=== PATIENT | male | born 1935 | race Caucasian/White ===

== ENCOUNTER 2023-12-02 23:15 | Inpatient (IN) | payer OTHER, MEDICAID ==
[~2023-12-02] VITALS: Ht 177.8 cm; Wt 61.2 kg
[2023-12-02 23:22] VITALS: BP_SYST 110; PULSE 162; RESP 17; TEMP 98; O2SAT 97
[2023-12-02] MEDS ORDERED: PIPERACILLIN/TAZOBACTAM 3.375 GM/VIAL (ZOSYN) IV ONE (23:47)
[2023-12-02] MEDS: dilTIAZem HCL IVP 5 MG/ML VIAL IVP ONE (23:51)
[2023-12-02] MEDS: PIPERACILLIN/TAZO 3.375 GM in D5W 50 ML IV ONE (23:52)
[2023-12-02] MEDS ORDERED: BISA10SU61 RC (23:53)
[2023-12-02] MEDS ORDERED: MULT-1117 GT (23:53)
[2023-12-02] MEDS ORDERED: IPRA4AER INH (23:53)
[2023-12-02] MEDS ORDERED: DICY10SO GT (23:53)
[2023-12-02] MEDS ORDERED: ZOLP5TAB2 PO (23:53)
[2023-12-02] MEDS ORDERED: FAMO40TA7 GT (23:53)
[2023-12-02] MEDS ORDERED: SIME80TA15 GT (23:53)
[2023-12-02] MEDS ORDERED: AMIT10TA6 GT (23:53)
[2023-12-02] MEDS ORDERED: VITD2000 GT (23:53)
[2023-12-02] MEDS ORDERED: ACET325T GT ×2 (23:53)
[2023-12-02] MEDS ORDERED: MOM GT (23:53)
[2023-12-02] MEDS ORDERED: DIF100 PEG (23:53)
[2023-12-02] MEDS ORDERED: ACET-73 GT (23:53)
[2023-12-02] MEDS ORDERED: COLL100 GT (23:53)
[2023-12-02] MEDS ORDERED: OLAN2.5T3 GT (23:53)
[2023-12-02] MEDS ORDERED: SENN8.6T19 GT (23:53)
[2023-12-03] VITALS (24 sets, daily range): BP systolic 97–135; PULSE 87–167; RESP 14–20; TEMP 98.2–100; O2SAT 91–100
[2023-12-03] LABS: BASOPHILS % (AUTO) 0.3 % (0.0-2.0); EOSINOPHILS % (AUTO) 0.2 % (0.0-4.0); HEMATOCRIT 22.4 % (36-54); LYMPHOCYTES # (AUTO) 1.1 K/uL (1.0-5.5); LYMPHOCYTES % (AUTO) 13.1 % (20.5-51.5); MEAN CORPUSCULAR HEMOGLOBIN 35 pg (27-31); MEAN CORPUSCULAR HGB CONC 36 % (32-36); MEAN CORPUSCULAR VOLUME 97 fL (79.0-98.0); MONOCYTES # (AUTO) 1.4 K/uL (0.0-1.0); MONOCYTES % (AUTO) 16.5 % (1.7-9.3); NEUTROPHILS # (AUTO) 5.9 K/uL (1.8-7.7); NEUTROPHILS % (AUTO) 69.9 % (40.0-70.0); PLATELET COUNT (AUTO) 219 K/uL (130-430); RED BLOOD CELL COUNT(AUTO) 2.31 MIL/uL (4.2-6.2); RED CELL DISTRIBUTION WIDTH 16.8 % (9.0-15.0); WHITE BLOOD COUNT (AUTO) 8.5 K/uL (4.8-10.8)
[2023-12-03] MEDS: NS 1000 ML IV.SOLN IV ONE (00:02)
[2023-12-03] MEDS: dilTIAZem HCL IVP 5 MG/ML VIAL IVP ONE (00:12)
[2023-12-03 00:52] LABS: ALANINE AMINOTRANSFERASE 38 U/L (12-78); ALBUMIN 2.4 g/dL (3.4-4.8); ANION GAP 8 (5-15); ASPARTATE AMINOTRANSFERASE 60 U/L (10-37); CALCIUM 9.2 mg/dL (8.4-11.0); CARBON DIOXIDE 27 mmol/L (23-29); CHLORIDE 96 mmol/L (98-107); CREATININE 1.71 mg/dL (0.55-1.30); GLUCOSE 131 mg/dL (74-106); POTASSIUM 3.6 mmol/L (3.5-5.1); PROTHROMBIN TIME 10.1 SECS (9.5-12.5); SODIUM SERUM 131 mmol/L (136-145); TOTAL BILIRUBIN 0.5 mg/dL (0.0-1.0); TOTAL PROTEIN, SERUM 6.7 g/dL (6.4-8.3); UREA NITROGEN, BLOOD 65 mg/dL (8-21)
[2023-12-03 01:00] LABS: BILIRUBIN,DIRECT 0.2 mg/dL (0.0-0.3)
[2023-12-03 06:45] LABS: BASOPHILS % (AUTO) 0.3 % (0.0-2.0); EOSINOPHILS % (AUTO) 0.1 % (0.0-4.0); HEMATOCRIT 25.9 % (36-54); HEMOGLOBIN 8.9 g/dL (14.0-18.0); LYMPHOCYTES # (AUTO) 0.9 K/uL (1.0-5.5); LYMPHOCYTES % (AUTO) 10.6 % (20.5-51.5); MEAN CORPUSCULAR HEMOGLOBIN 34 pg (27-31); MEAN CORPUSCULAR HGB CONC 34 % (32-36); MEAN CORPUSCULAR VOLUME 99 fL (79.0-98.0); MONOCYTES # (AUTO) 1.3 K/uL (0.0-1.0); NEUTROPHILS # (AUTO) 6.4 K/uL (1.8-7.7); PLATELET COUNT (AUTO) 231 K/uL (130-430); RED BLOOD CELL COUNT(AUTO) 2.62 MIL/uL (4.2-6.2); RED CELL DISTRIBUTION WIDTH 16.8 % (9.0-15.0); WHITE BLOOD COUNT (AUTO) 8.6 K/uL (4.8-10.8)
[2023-12-03 07:18] LABS: ALANINE AMINOTRANSFERASE 38 U/L (12-78); ALBUMIN 2.5 g/dL (3.4-4.8); ANION GAP 10 (5-15); ASPARTATE AMINOTRANSFERASE 54 U/L (10-37); CALCIUM 9.5 mg/dL (8.4-11.0); CARBON DIOXIDE 26 mmol/L (23-29); CHLORIDE 97 mmol/L (98-107); CREATININE 1.72 mg/dL (0.55-1.30); GLUCOSE 133 mg/dL (74-106); POTASSIUM 3.9 mmol/L (3.5-5.1); SODIUM SERUM 133 mmol/L (136-145); TOTAL BILIRUBIN 0.7 mg/dL (0.0-1.0); TOTAL PROTEIN, SERUM 7.1 g/dL (6.4-8.3); UREA NITROGEN, BLOOD 60 mg/dL (8-21)
[2023-12-03 08:25] LABS: BILIRUBIN,URINE NEGATIVE (NEGATIVE); BLOOD, URINE NEGATIVE (NEGATIVE); CLARITY/URINE CLEAR (CLEAR); COLOR,URINE YELLOW (YELLOW); GLUCOSE,URINE NEGATIVE (NEGATIVE); KETONES,URINE NEGATIVE (NEGATIVE); LEUKOCYTE ESTERASE ,URINE NEGATIVE (NEGATIVE); NITRITE, URINE NEGATIVE (NEGATIVE); PH,URINE 5.5 (5.0-8.0); PROTEIN URINE NEGATIVE (NEGATIVE); UROBILINOGEN,URINE 0.2 (0.2-1.0)
[2023-12-03] MEDS: PIPERACILLIN/TAZO 3.375 GM in NS 50 ML IV SCH (08:31)
[2023-12-03] MEDS: DILTIAZEM HCL 30 MG TABLET PO ONE (08:48)
[2023-12-03] MEDS ORDERED: SIMETHICONE 80 MG TAB.CHEW GT SCH (09:45)
[2023-12-03] MEDS ORDERED: ONDANSETRON HCL 4 MG/2 ML VIAL IVP PRN (09:45)
[2023-12-03] MEDS ORDERED: HYDROcodone/ACETAMIN 5-325 MG TAB (NORCO/ VICODIN) PO PRN (09:45)
[2023-12-03] MEDS ORDERED: NALOXONE HCL 0.4 MG/ML AMP (NARCAN) IVP PRN (09:45)
[2023-12-03] MEDS ORDERED: BISACODYL 10 MG/SUPPOSITORY RC SCH (09:45)
[2023-12-03] MEDS: ALBUTEROL SULFATE 0.083% 2.5 MG/3 ML VIAL.NEB INH SCH (10:49)
[2023-12-03] MEDS: NACL 0.9% 1,000 ML IV ONE (11:25)
[2023-12-03] MEDS ORDERED: METOPROLOL SUCCINATE 25 MG TAB.SR.24H (TOPROL XL) PO SCH ×2 (11:45→21:00)
[2023-12-03] MEDS: DILTIAZEM HCL 30 MG TABLET PO SCH (13:48)
[2023-12-03] MEDS: OLANZapine 2.5 MG TABLET PO ONE (18:15)
[2023-12-03] MEDS: ACETAMINOPHEN 325 MG TABLET PO PRN (18:42)
[2023-12-03] MEDS ORDERED: OLANZapine 2.5 MG TABLET GT SCH (21:00)
[2023-12-03] MEDS: AMITRIPTYLINE HCL 10 MG TABLET (ELAVIL) GT SCH (21:03)
[2023-12-03] MEDS: OLANZapine 2.5 MG TABLET PO SCH (21:04)
[2023-12-04] VITALS (28 sets, daily range): BP systolic 97–133; PULSE 96–174; RESP 15–23; TEMP 98.6–99.7; O2SAT 94–100
[2023-12-04] MEDS: dilTIAZem HCL IVP 5 MG/ML VIAL IVP PRN (03:34)
[2023-12-04] MEDS: MORPHINE 2 MG/ML INJ. SYRINGE IVP PRN (04:34)
[2023-12-04 05:30] LABS: TOTAL IRON BIND. CAPACITY 233 ug/dL (250-450)
[2023-12-04 06:01] LABS: BASOPHILS % (AUTO) 0.3 % (0.0-2.0); EOSINOPHILS % (AUTO) 0.1 % (0.0-4.0); HEMOGLOBIN 7.5 g/dL (14.0-18.0); LYMPHOCYTES # (AUTO) 0.7 K/uL (1.0-5.5); LYMPHOCYTES % (AUTO) 10.5 % (20.5-51.5); MEAN CORPUSCULAR HEMOGLOBIN 34 pg (27-31); MEAN CORPUSCULAR HGB CONC 35 % (32-36); MEAN CORPUSCULAR VOLUME 99 fL (79.0-98.0); MONOCYTES # (AUTO) 1.1 K/uL (0.0-1.0); MONOCYTES % (AUTO) 17.2 % (1.7-9.3); NEUTROPHILS # (AUTO) 4.7 K/uL (1.8-7.7); NEUTROPHILS % (AUTO) 71.9 % (40.0-70.0); PLATELET COUNT (AUTO) 241 K/uL (130-430); RED CELL DISTRIBUTION WIDTH 17.3 % (9.0-15.0); WHITE BLOOD COUNT (AUTO) 6.6 K/uL (4.8-10.8)
[2023-12-04 06:07] LABS: ALANINE AMINOTRANSFERASE 33 U/L (12-78); ANION GAP 7 (5-15); ASPARTATE AMINOTRANSFERASE 40 U/L (10-37); CALCIUM 8.9 mg/dL (8.4-11.0); CARBON DIOXIDE 27 mmol/L (23-29); CHLORIDE 103 mmol/L (98-107); CREATININE 1.67 mg/dL (0.55-1.30); GLUCOSE 147 mg/dL (74-106); SODIUM SERUM 137 mmol/L (136-145); TOTAL BILIRUBIN 0.4 mg/dL (0.0-1.0); TOTAL PROTEIN, SERUM 6.2 g/dL (6.4-8.3); UREA NITROGEN, BLOOD 48 mg/dL (8-21)
[2023-12-04 06:39] LABS: HEMATOCRIT 21.8 % (36-54)
[2023-12-04 06:43] LABS: RETICULOCYTE COUNT 6.7 % (0.5-1.5)
[2023-12-04] MEDS: CARVEDILOL 3.125 MG TABLET (COREG) PO ONE (10:43)
[2023-12-04] MEDS: CEFEPIME 1 GM in D5W 50 ML IV SCH (10:44)
[2023-12-04] MEDS: SOD FERRIC GLUC COMPLEX/SUC 125 MG in NS 100 ML IV SCH (14:28)
[2023-12-04] MEDS: EPOETIN ALFA-EPBX 3,000 UNITS/ML VIAL SUBCUT SCH (16:30)
[2023-12-04] MEDS: CARVEDILOL 3.125 MG TABLET (COREG) PO SCH (20:41)
[2023-12-04] MEDS: AMITRIPTYLINE HCL 10 MG TABLET (ELAVIL) PO SCH (21:11)
[2023-12-04] MEDS: HEPARIN SODIUM,PORCINE 5,000 UNITS/ML VIAL SUBCUT SCH (21:12)
[2023-12-05] VITALS (29 sets, daily range): BP systolic 94–131; PULSE 91–115; RESP 12–23; TEMP 97.8–99.3; O2SAT 94–100
[2023-12-05 05:04] LABS: ALANINE AMINOTRANSFERASE 33 U/L (12-78); ALBUMIN 2.1 g/dL (3.4-4.8); ANION GAP 6 (5-15); ASPARTATE AMINOTRANSFERASE 37 U/L (10-37); CALCIUM 8.8 mg/dL (8.4-11.0); CARBON DIOXIDE 28 mmol/L (23-29); CHLORIDE 103 mmol/L (98-107); CREATININE 1.46 mg/dL (0.55-1.30); GLUCOSE 117 mg/dL (74-106); POTASSIUM 4.6 mmol/L (3.5-5.1); SODIUM SERUM 137 mmol/L (136-145); TOTAL BILIRUBIN 0.5 mg/dL (0.0-1.0); TOTAL PROTEIN, SERUM 6.3 g/dL (6.4-8.3); UREA NITROGEN, BLOOD 41 mg/dL (8-21)
[2023-12-05 05:10] LABS: BASOPHILS % (AUTO) 0.4 % (0.0-2.0); EOSINOPHILS % (AUTO) 0.3 % (0.0-4.0); HEMOGLOBIN 7.3 g/dL (14.0-18.0); LYMPHOCYTES # (AUTO) 0.7 K/uL (1.0-5.5); LYMPHOCYTES % (AUTO) 10.2 % (20.5-51.5); MEAN CORPUSCULAR HEMOGLOBIN 34 pg (27-31); MEAN CORPUSCULAR HGB CONC 34 % (32-36); MEAN CORPUSCULAR VOLUME 100 fL (79.0-98.0); MONOCYTES # (AUTO) 1.2 K/uL (0.0-1.0); MONOCYTES % (AUTO) 17.8 % (1.7-9.3); NEUTROPHILS # (AUTO) 4.9 K/uL (1.8-7.7); NEUTROPHILS % (AUTO) 71.3 % (40.0-70.0); PLATELET COUNT (AUTO) 279 K/uL (130-430); RED BLOOD CELL COUNT(AUTO) 2.16 MIL/uL (4.2-6.2); RED CELL DISTRIBUTION WIDTH 17.6 % (9.0-15.0); WHITE BLOOD COUNT (AUTO) 6.9 K/uL (4.8-10.8)
[2023-12-05 06:00] LABS: HEMATOCRIT 21.7 % (36-54)
[2023-12-05] MEDS: FOLIC ACID 1 MG TABLET PO SCH (10:14)
[2023-12-05] MEDS: SENNOSIDES/DOCUSATE SODIUM 1 TAB TABLET(SENOKOT-S) PO ONE (15:06)
[2023-12-05] MEDS: AMIODARONE HCL 200 MG TABLET PO ONE (16:52)
[2023-12-05] MEDS: AMIODARONE HCL 200 MG TABLET PO SCH (20:20)
[2023-12-05] MEDS: SENNOSIDES/DOCUSATE SODIUM 1 TAB TABLET(SENOKOT-S) PO SCH (20:39)
[2023-12-06] VITALS (28 sets, daily range): BP systolic 103–139; PULSE 92–165; RESP 13–24; TEMP 97.8–99.8; O2SAT 0–100
[2023-12-06 07:28] LABS: BASOPHILS % (AUTO) 0.4 % (0.0-2.0); EOSINOPHILS % (AUTO) 0.4 % (0.0-4.0); HEMOGLOBIN 7.2 g/dL (14.0-18.0); LYMPHOCYTES # (AUTO) 0.7 K/uL (1.0-5.5); LYMPHOCYTES % (AUTO) 10.6 % (20.5-51.5); MEAN CORPUSCULAR HEMOGLOBIN 33 pg (27-31); MEAN CORPUSCULAR HGB CONC 33 % (32-36); MEAN CORPUSCULAR VOLUME 101 fL (79.0-98.0); NEUTROPHILS % (AUTO) 73.6 % (40.0-70.0); PLATELET COUNT (AUTO) 316 K/uL (130-430); RED BLOOD CELL COUNT(AUTO) 2.17 MIL/uL (4.2-6.2); RED CELL DISTRIBUTION WIDTH 17.6 % (9.0-15.0); WHITE BLOOD COUNT (AUTO) 6.8 K/uL (4.8-10.8)
[2023-12-06 07:34] LABS: ALANINE AMINOTRANSFERASE 33 U/L (12-78); ALBUMIN 2.2 g/dL (3.4-4.8); ANION GAP 10 (5-15); ASPARTATE AMINOTRANSFERASE 40 U/L (10-37); CALCIUM 9.2 mg/dL (8.4-11.0); CARBON DIOXIDE 26 mmol/L (23-29); CHLORIDE 102 mmol/L (98-107); CREATININE 1.42 mg/dL (0.55-1.30); GLUCOSE 132 mg/dL (74-106); POTASSIUM 4.1 mmol/L (3.5-5.1); SODIUM SERUM 138 mmol/L (136-145); TOTAL BILIRUBIN 0.4 mg/dL (0.0-1.0); TOTAL PROTEIN, SERUM 6.5 g/dL (6.4-8.3); UREA NITROGEN, BLOOD 39 mg/dL (8-21)
[2023-12-06 08:44] LABS: HEMATOCRIT 21.9 % (36-54)
[2023-12-06] MEDS ORDERED: AMIODARONE HCL 450 MG in D5W 241 ML IV SCH (11:15)
[2023-12-06] MEDS ORDERED: AMIODARONE HCL 150 MG in D5W 100 ML IV ONE (11:30)
[2023-12-06] MEDS: APIXABAN 2.5 MG TABLET PO ONE (12:36)
[2023-12-06] MEDS: AMIODARONE HCL 150 MG in D5W 100 ML IV ONE (12:57)
[2023-12-06] MEDS: LevALBUTEROL HCL 1.25 MG/0.5 ML *CONC.* VIAL.NEB (XOPENEX CONC.) INH SCH (13:00)
[2023-12-06] MEDS: AMIODARONE HCL 150 MG/3ML VIAL ONE (13:17)
[2023-12-06] MEDS: AMIODARONE HCL 450 MG/9 ML VIAL IV ONE (20:46)
[2023-12-06] MEDS: AMIODARONE HCL 450 MG in D5W 241 ML IV SCH (21:03)
[2023-12-06] MEDS: APIXABAN 2.5 MG TABLET PO SCH (22:16)
[2023-12-07] VITALS (29 sets, daily range): BP systolic 100–141; PULSE 91–108; RESP 12–23; TEMP 97.3–98.8; O2SAT 95–100
[2023-12-07 06:13] LABS: BASOPHILS % (AUTO) 0.5 % (0.0-2.0); EOSINOPHILS % (AUTO) 0.3 % (0.0-4.0); LYMPHOCYTES # (AUTO) 0.8 K/uL (1.0-5.5); LYMPHOCYTES % (AUTO) 10.2 % (20.5-51.5); MEAN CORPUSCULAR HEMOGLOBIN 35 pg (27-31); MEAN CORPUSCULAR HGB CONC 34 % (32-36); MEAN CORPUSCULAR VOLUME 101 fL (79.0-98.0); MONOCYTES # (AUTO) 1.1 K/uL (0.0-1.0); MONOCYTES % (AUTO) 14.8 % (1.7-9.3); NEUTROPHILS # (AUTO) 5.6 K/uL (1.8-7.7); NEUTROPHILS % (AUTO) 74.2 % (40.0-70.0); PLATELET COUNT (AUTO) 324 K/uL (130-430); RED BLOOD CELL COUNT(AUTO) 2.04 MIL/uL (4.2-6.2); RED CELL DISTRIBUTION WIDTH 17.8 % (9.0-15.0); WHITE BLOOD COUNT (AUTO) 7.5 K/uL (4.8-10.8)
[2023-12-07 06:38] LABS: ALANINE AMINOTRANSFERASE 35 U/L (12-78); ALBUMIN 2.2 g/dL (3.4-4.8); ANION GAP 8 (5-15); ASPARTATE AMINOTRANSFERASE 46 U/L (10-37); CALCIUM 8.9 mg/dL (8.4-11.0); CARBON DIOXIDE 27 mmol/L (23-29); CHLORIDE 101 mmol/L (98-107); CREATININE 1.52 mg/dL (0.55-1.30); GLUCOSE 109 mg/dL (74-106); POTASSIUM 4.4 mmol/L (3.5-5.1); SODIUM SERUM 136 mmol/L (136-145); TOTAL BILIRUBIN 0.4 mg/dL (0.0-1.0); TOTAL PROTEIN, SERUM 6.3 g/dL (6.4-8.3); UREA NITROGEN, BLOOD 38 mg/dL (8-21)
[2023-12-07 08:20] LABS: HEMATOCRIT 20.6 % (36-54)
[2023-12-07] MEDS: AMIODARONE HCL 200 MG TABLET PO ONE (14:36)
[2023-12-07] MEDS: AMIODARONE HCL 200 MG TABLET PO SCH (21:45)
[2023-12-08] VITALS (25 sets, daily range): BP systolic 104–152; PULSE 88–110; RESP 14–25; TEMP 97.3–98.2; O2SAT 94–100
[2023-12-08 06:18] LABS: BASOPHILS % (AUTO) 0.3 % (0.0-2.0); EOSINOPHILS % (AUTO) 0.2 % (0.0-4.0); LYMPHOCYTES # (AUTO) 0.7 K/uL (1.0-5.5); LYMPHOCYTES % (AUTO) 8.5 % (20.5-51.5); MEAN CORPUSCULAR HEMOGLOBIN 35 pg (27-31); MEAN CORPUSCULAR HGB CONC 34 % (32-36); MEAN CORPUSCULAR VOLUME 101 fL (79.0-98.0); MONOCYTES # (AUTO) 1.3 K/uL (0.0-1.0); MONOCYTES % (AUTO) 15.2 % (1.7-9.3); NEUTROPHILS # (AUTO) 6.6 K/uL (1.8-7.7); NEUTROPHILS % (AUTO) 75.8 % (40.0-70.0); PLATELET COUNT (AUTO) 325 K/uL (130-430); RED CELL DISTRIBUTION WIDTH 18.3 % (9.0-15.0); WHITE BLOOD COUNT (AUTO) 8.7 K/uL (4.8-10.8)
[2023-12-08 07:13] LABS: ALANINE AMINOTRANSFERASE 38 U/L (12-78); ALBUMIN 2.1 g/dL (3.4-4.8); ANION GAP 8 (5-15); ASPARTATE AMINOTRANSFERASE 51 U/L (10-37); CALCIUM 9.1 mg/dL (8.4-11.0); CARBON DIOXIDE 26 mmol/L (23-29); CHLORIDE 102 mmol/L (98-107); CREATININE 1.48 mg/dL (0.55-1.30); GLUCOSE 99 mg/dL (74-106); POTASSIUM 4.8 mmol/L (3.5-5.1); SODIUM SERUM 136 mmol/L (136-145); TOTAL BILIRUBIN 0.4 mg/dL (0.0-1.0); TOTAL PROTEIN, SERUM 6.2 g/dL (6.4-8.3); UREA NITROGEN, BLOOD 37 mg/dL (8-21)
[2023-12-08 08:08] LABS: RED BLOOD CELL COUNT(AUTO) 1.98 MIL/uL (4.2-6.2)
[2023-12-08 08:13] LABS: HEMOGLOBIN 6.9 g/dL (14.0-18.0)
[2023-12-09] VITALS (19 sets, daily range): BP systolic 102–142; PULSE 99–113; RESP 14–24; TEMP 97.6–98.3; O2SAT 91–100
[2023-12-09 05:13] LABS: BASOPHILS % (AUTO) 0.3 % (0.0-2.0); EOSINOPHILS % (AUTO) 0.2 % (0.0-4.0); HEMATOCRIT 23.6 % (36-54); HEMOGLOBIN 8.1 g/dL (14.0-18.0); LYMPHOCYTES # (AUTO) 0.7 K/uL (1.0-5.5); LYMPHOCYTES % (AUTO) 7.6 % (20.5-51.5); MEAN CORPUSCULAR HEMOGLOBIN 34 pg (27-31); MEAN CORPUSCULAR HGB CONC 35 % (32-36); MEAN CORPUSCULAR VOLUME 99 fL (79.0-98.0); MONOCYTES # (AUTO) 1.5 K/uL (0.0-1.0); MONOCYTES % (AUTO) 16.5 % (1.7-9.3); NEUTROPHILS # (AUTO) 7.1 K/uL (1.8-7.7); NEUTROPHILS % (AUTO) 75.4 % (40.0-70.0); PLATELET COUNT (AUTO) 333 K/uL (130-430); RED CELL DISTRIBUTION WIDTH 18.2 % (9.0-15.0); WHITE BLOOD COUNT (AUTO) 9.4 K/uL (4.8-10.8)
[2023-12-09 05:16] LABS: ALANINE AMINOTRANSFERASE 48 U/L (12-78); ALBUMIN 2.1 g/dL (3.4-4.8); ANION GAP 5 (5-15); ASPARTATE AMINOTRANSFERASE 62 U/L (10-37); CALCIUM 8.9 mg/dL (8.4-11.0); CARBON DIOXIDE 26 mmol/L (23-29); CHLORIDE 101 mmol/L (98-107); CREATININE 1.54 mg/dL (0.55-1.30); GLUCOSE 144 mg/dL (74-106); POTASSIUM 4.3 mmol/L (3.5-5.1); SODIUM SERUM 132 mmol/L (136-145); TOTAL BILIRUBIN 0.5 mg/dL (0.0-1.0); TOTAL PROTEIN, SERUM 6.3 g/dL (6.4-8.3); UREA NITROGEN, BLOOD 35 mg/dL (8-21)
[2023-12-09] MEDS: DILTIAZEM HCL 60 MG TABLET PO SCH (13:50)
[2023-12-10] VITALS (9 sets, daily range): BP systolic 102–119; PULSE 94–109; RESP 18–20; TEMP 98–99.5; O2SAT 97–99
[2023-12-10 08:27] LABS: BASOPHILS % (AUTO) 0.3 % (0.0-2.0); EOSINOPHILS % (AUTO) 0.4 % (0.0-4.0); HEMATOCRIT 25.5 % (36-54); HEMOGLOBIN 8.6 g/dL (14.0-18.0); LYMPHOCYTES # (AUTO) 0.8 K/uL (1.0-5.5); LYMPHOCYTES % (AUTO) 7.7 % (20.5-51.5); MEAN CORPUSCULAR HEMOGLOBIN 34 pg (27-31); MEAN CORPUSCULAR HGB CONC 34 % (32-36); MEAN CORPUSCULAR VOLUME 100 fL (79.0-98.0); MONOCYTES # (AUTO) 1.5 K/uL (0.0-1.0); MONOCYTES % (AUTO) 15.4 % (1.7-9.3); NEUTROPHILS # (AUTO) 7.6 K/uL (1.8-7.7); PLATELET COUNT (AUTO) 327 K/uL (130-430); RED BLOOD CELL COUNT(AUTO) 2.54 MIL/uL (4.2-6.2); RED CELL DISTRIBUTION WIDTH 17.8 % (9.0-15.0); WHITE BLOOD COUNT (AUTO) 9.9 K/uL (4.8-10.8)
[2023-12-10 08:40] LABS: ALANINE AMINOTRANSFERASE 62 U/L (12-78); ALBUMIN 2.2 g/dL (3.4-4.8); ANION GAP 5 (5-15); ASPARTATE AMINOTRANSFERASE 71 U/L (10-37); CALCIUM 8.9 mg/dL (8.4-11.0); CARBON DIOXIDE 26 mmol/L (23-29); CHLORIDE 99 mmol/L (98-107); CREATININE 1.53 mg/dL (0.55-1.30); GLUCOSE 124 mg/dL (74-106); POTASSIUM 4.9 mmol/L (3.5-5.1); SODIUM SERUM 130 mmol/L (136-145); TOTAL BILIRUBIN 0.5 mg/dL (0.0-1.0); TOTAL PROTEIN, SERUM 6.4 g/dL (6.4-8.3); UREA NITROGEN, BLOOD 30 mg/dL (8-21)
[2023-12-10] MEDS: LevALBUTEROL HCL 1.25 MG/0.5 ML *CONC.* VIAL.NEB (XOPENEX CONC.) INH ONE (09:05)
[2023-12-10 09:27] LABS: NEUTROPHILS % (AUTO) 76.2 % (40.0-70.0)
[2023-12-10 09:28] LABS: ANISOCYTOSIS 1+; POLYCHROMASIA SLIGHT
[2023-12-10] MEDS: NACL 0.9% 1,000 ML IV SCH (12:21)
[2023-12-10] MEDS: HYDROcodone/ACETAMIN 10-325 MG TAB PO PRN (22:25)
[2023-12-11] VITALS (9 sets, daily range): BP systolic 113–128; PULSE 61–109; RESP 18–20; TEMP 97.4–98.8; O2SAT 95–99
[2023-12-11] MEDS ORDERED: GABAPENTIN 100 MG CAPSULE PO ONE (09:30)
[2023-12-11 09:42] LABS: BASOPHILS % (AUTO) 0.3 % (0.0-2.0); EOSINOPHILS % (AUTO) 0.3 % (0.0-4.0); HEMATOCRIT 25.8 % (36-54); HEMOGLOBIN 8.7 g/dL (14.0-18.0); LYMPHOCYTES # (AUTO) 0.8 K/uL (1.0-5.5); LYMPHOCYTES % (AUTO) 7.6 % (20.5-51.5); MEAN CORPUSCULAR HEMOGLOBIN 34 pg (27-31); MEAN CORPUSCULAR HGB CONC 34 % (32-36); MEAN CORPUSCULAR VOLUME 101 fL (79.0-98.0); MONOCYTES # (AUTO) 1.5 K/uL (0.0-1.0); MONOCYTES % (AUTO) 14.5 % (1.7-9.3); NEUTROPHILS # (AUTO) 7.8 K/uL (1.8-7.7); NEUTROPHILS % (AUTO) 77.3 % (40.0-70.0); PLATELET COUNT (AUTO) 291 K/uL (130-430); RED BLOOD CELL COUNT(AUTO) 2.56 MIL/uL (4.2-6.2); RED CELL DISTRIBUTION WIDTH 18.2 % (9.0-15.0); WHITE BLOOD COUNT (AUTO) 10.1 K/uL (4.8-10.8)
[2023-12-11 10:05] LABS: ANION GAP 4 (5-15); CALCIUM 8.9 mg/dL (8.4-11.0); CARBON DIOXIDE 28 mmol/L (23-29); CHLORIDE 98 mmol/L (98-107); CREATININE 1.58 mg/dL (0.55-1.30); GLUCOSE 114 mg/dL (74-106); POTASSIUM 4.9 mmol/L (3.5-5.1); SODIUM SERUM 130 mmol/L (136-145); UREA NITROGEN, BLOOD 37 mg/dL (8-21)
[2023-12-11] MEDS ORDERED: PHENOL/ORAL ANESTHETIC 177 ML BOTTLE MM PRN (11:00)
[2023-12-11] MEDS ORDERED: GABAPENTIN 100 MG CAPSULE PO SCH (21:00)
[2023-12-12] VITALS (10 sets, daily range): BP systolic 106–129; PULSE 58–109; RESP 14–20; TEMP 97.6–98.2; O2SAT 95–100
[2023-12-12 07:52] LABS: BASOPHILS % (AUTO) 0.3 % (0.0-2.0); EOSINOPHILS % (AUTO) 0.2 % (0.0-4.0); HEMATOCRIT 25.9 % (36-54); HEMOGLOBIN 8.6 g/dL (14.0-18.0); LYMPHOCYTES # (AUTO) 0.7 K/uL (1.0-5.5); LYMPHOCYTES % (AUTO) 6.1 % (20.5-51.5); MEAN CORPUSCULAR HEMOGLOBIN 33 pg (27-31); MEAN CORPUSCULAR HGB CONC 33 % (32-36); MEAN CORPUSCULAR VOLUME 100 fL (79.0-98.0); MONOCYTES # (AUTO) 1.7 K/uL (0.0-1.0); MONOCYTES % (AUTO) 14.3 % (1.7-9.3); NEUTROPHILS # (AUTO) 9.5 K/uL (1.8-7.7); NEUTROPHILS % (AUTO) 79.1 % (40.0-70.0); PLATELET COUNT (AUTO) 266 K/uL (130-430); RED BLOOD CELL COUNT(AUTO) 2.59 MIL/uL (4.2-6.2); RED CELL DISTRIBUTION WIDTH 18.6 % (9.0-15.0); WHITE BLOOD COUNT (AUTO) 12.1 K/uL (4.8-10.8)
[2023-12-12 08:13] LABS: ANION GAP 7 (5-15); CARBON DIOXIDE 26 mmol/L (23-29); CHLORIDE 97 mmol/L (98-107); CREATININE 1.54 mg/dL (0.55-1.30); GLUCOSE 121 mg/dL (74-106); POTASSIUM 4.3 mmol/L (3.5-5.1); SODIUM SERUM 130 mmol/L (136-145); UREA NITROGEN, BLOOD 37 mg/dL (8-21)
[2023-12-12] MEDS ORDERED: AUG875 PO (15:14)
[2023-12-12] MEDS ORDERED: AMIO200T6 PO (15:14)
[2023-12-12] MEDS ORDERED: APIX2.5T PO (15:14)
[2023-12-12] MEDS ORDERED: COR3.125 PO (15:14)
[2023-12-12] MEDS ORDERED: CARB200T2 PO (15:14)
== END 2023-12-12 16:05 | disposition hospice, home (50) | DRG 193 ==
LOC: SED 23:15 → SIC 12-03 02:11 → STU 12-09 18:38
PROVIDERS: ADMIT Family Medicine; ATTEND Family Medicine
PROC: 5A0935A Assistance with Respiratory Ventilation, Less than 24 Consecutive Hours, High Flow/Velocity Cannula (ICD-10-PCS; 2023-12-02)
PROC: 30233N1 Transfusion of Nonautologous Red Blood Cells into Peripheral Vein, Percutaneous Approach (ICD-10-PCS; principal; 2023-12-08)
DX: J18.9 Pneumonia, unspecified organism (principal); E43 Unspecified severe protein-calorie malnutrition; J96.01 Acute respiratory failure with hypoxia; G93.41 Metabolic encephalopathy; N17.9 Acute kidney failure, unspecified; I48.92 Unspecified atrial flutter; Z68.1 Body mass index [BMI] 19.9 or less, adult; E87.1 Hypo-osmolality and hyponatremia; C34.90 Malignant neoplasm of unspecified part of unspecified bronchus or lung; C78.7 Secondary malignant neoplasm of liver and intrahepatic bile duct; C79.31 Secondary malignant neoplasm of brain; Z66 Do not resuscitate; I12.9 Hypertensive chronic kidney disease with stage 1 through stage 4 chronic kidney disease, or unspecified chronic kidney disease; D64.9 Anemia, unspecified; G50.0 Trigeminal neuralgia; I48.0 Paroxysmal atrial fibrillation; Z93.1 Gastrostomy status; N18.32 Chronic kidney disease, stage 3b; Z87.891 Personal history of nicotine dependence; Z51.5 Encounter for palliative care; Z79.899 Other long term (current) drug therapy
CPT/HCPCS: 36415; 71045; 80048; 80053; 80076; 81001; 81003; 82272; 83540; 83550; 83605; 83880; 84484; 85025; 85044; 85610; 85730; 86886; 86900; 86901; 86920; 87040; 87081; 87086; 87230; 92610-GN; 93005; 93306; 94070; 94640; 94760; 96374; 97110-GP; 97112-GP; 97116-GP; 97530-GP; 99291; 99292; G0378; J0282; J0692; J1644; J2270; J2543; J2916; J3490; J7060; J7612; P9021; Q5106